=== PATIENT | female | born 1990 | race Caucasian/White ===

== ENCOUNTER 2025-06-11 10:23 | Inpatient (IN) ==
--- NOTE | 2025-06-11 11:15 | Ultrasound Report ---
ULTRASOUND OBSTETRICAL LIMITED CLINICAL HISTORY: Intrauterine demise at 23 weeks. COMPARISON STUDY: Obstetrical ultrasound dated 05/23/2025. FINDINGS: Real-time grayscale and color Doppler sonography of the fetus and gravid uterus is performe d. There is a single intrauterine gestation. The femoral length measures 3.62 cm, corresponding to an estimated age of 21 weeks 3 days. No cardiac activity was identified indicating demise. The ob stetrician was present during the examination. IMPRESSION: 1. There is a single intrauterine gestation with an estimated age of 21 weeks 3 days by femoral lengt h measurement. 2. No cardiac activity was identified confirming intrauterine demise. The air traffic control specialist was pres ent during the examination. Electronically signed by: Tyrell Lynch M.D. 06/11/2025 11:14 AM
--- NOTE | 2025-06-11 11:26 | History & Physical Report ---
Date of Service June 11, 2025 Assessment & Plan (1) IUFD at 20 weeks or more of gestation: Plan Support given given dx. Couple given time to grieve but then wanted to proceed with next steps. Ask about why this happened and given history as noted, can consider chromosomal issue can be further explored. Briefly brought up that as option. On u/s i did not see alot of fluid and in my hands would offer anorra testing as best option for more info on chromosomes. Also i do see her bp but taken with discovery of demise. Still montrell get labs, urine prot/creat ratio and see if bps cont to be elevated. Aware of placenta evaluation as well and will let them know about autopsy as option as well. Unexplained demise can be one third of this situations and that was also brought up. Option for induction of labor to result in delivery, would be only option to offer at [facility] at this time. She can stay or go home and think about things or give herself time but she pretty readily decided that was not for her and wants to be admitted to start process. She plans to have her mom drive from [place] to be with her. They have dogs but her partner plans to have his parents take care of them. They will be moved to another room and nursing will let me know when ready for cx exam and start misoprostol dosing. History of Present Illness Chief Complaint: no movement. Primary Care Provider: NO PCP 34yo at 23 0/7wks ega presents to LD with concern for no movement. Patient arrived at ER, did not call, noting no movement. Came to LD and nursing attempted to hear fhts and unable to find. Called to bedside and u/s performed where I could not see fhts or gross fm. Formal u/s also done confirming no fhts, IUFD. 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 Was seen by hilario and deann for early anatomy u/s and ultimately did not go through amnio due to discussions at these consults. Of note, also was at echo last , where findings were considered normal per pt. Here with partner. No bleeding, leaking. PNC c/b 1. IVF 2. 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, ri OBH: sab x 3 GYNH: infertility, was seen SGF, this was ivf Allergies Allergy/AdvReac Type Severity Reaction Status Date / Time No Known Allergies Allergy Unverified 05/23/25 09:32 Home Medications Medication Instructions Recorded Confirmed Type aspirin 81 mg tablet,delayed 81 mg PO DAILY 03/22/25 05/23/25 History release (Adult Low Dose Aspirin) prenat.vits,roxy,bjy-sgrr-zdalc tab PO 03/22/25 05/23/25 History Patient History Medical History Endometriosis Surgical History S/P laparoscopy Family History (Updated 03/22/25 @ 09:57 by Milena Morales) Other Diabetes Dyslipidemia Kidney disease Social History (Updated 03/22/25 @ 10:07 by Milena Morales) Smoking Status: Never smoker Do You Dip or Chew Tobacco: No; Hx Substance Use: No Preferred Language: Belarusian Hearing Ability: Normal marital status: marital status details: Abel (36) [phone] Current Living Situation: Spouse Current Living Situation Comment: lives with spouse and 2 dogs. 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 Feels Safe at Home: Yes Review of Systems as per Subjective / HPI Physical Exam Constitutional: WD/WN, vitals as above Neurologic: grossly normal Psychiatric: Orientation: alert and oriented x 3 (appropriately tearful) Genitourinary: cephalic on u/s Results & Data Vital Signs (Past 12 Hours) Vital Signs Temp Pulse Resp BP Pulse Ox 06/11/25 11:03 100 H 99 06/11/25 10:58 105 H 99 06/11/25 10:53 113 H 98 06/11/25 10:48 102 H 99 06/11/25 10:43 122 H 99 06/11/25 10:38 126 H 100 06/11/25 10:28 99.3 F 75 20 169/96 H Coding Level of Care Code None Diagnoses IUFD at 20 weeks or more of gestation O36.4XX0
[2025-06-11] MEDS ORDERED: LIDOCAINE 1% LOCAL 20 ML VIAL INFIL PRN (11:29)
[2025-06-11] MEDS ORDERED: CALCIUM CARBONATE 500 MG CHEWABLE TAB PO PRN (11:29)
[2025-06-11 12:11] LABS: Hematocrit (blood only) 35.9 % (37.0-47.0); Hemoglobin 12.4 g/dl (12.0-16.0); Mean Corpuscular Hemoglobin 31.2 pg (25.0-34.0); Mean Corpuscular Volume 90.2 fL (80.0-100.0); Platelet Count 301 K/uL (130-400); RDW Standard Deviation 42.3 fL (36.4-46.3); Red Blood Count 3.98 M/uL (4.20-5.40); White Blood Count 11.18 K/ul (4.8-10.8)
[2025-06-11 12:31] LABS: Alanine Aminotransferase 24 U/L (7-52); Albumin Globulin Ratio 1.0 (0.9-2); Albumin Level 3.3 gm/dl (3.4-5.0); Alkaline Phosphatase 109 U/L (34-104); Anion Gap 7 (3-11); Bilirubin,Total 0.3 mg/dl (0.2-1.0); Blood Urea Nitrogen 10 mg/dl (6-23); Calcium 9.1 mg/dl (8.6-10.3); Carbon Dioxide 24 mmol/L (21-32); Chloride 106 mmol/L (98-107); Globulin 3.4 gm/dl (2.5-4.0); Glucose 94 mg/dl (70-99(Fasting)); Potassium 4.0 mmol/L (3.5-5.1); Sodium 137 mmol/L (136-145); Total Protein 6.7 gm/dl (6.0-8.3)
--- NOTE | 2025-06-11 14:09 | Labor Progress Brief Note ---
Date of Service June 11, 2025 Subjective pt ready to proceed. her parents are on their way. Assessment & Plan (1) IUFD at 20 weeks or more of gestation: Plan will begin induction. discussed options for anorra testing again, did discuss autopsy as option and evaluation of placenta as something i have planend. discussed her bps, and labs so far. she will let us know about pain mgmt through the process. discussed delivery of baby and placenta and sometimes latter can be an issue but will address when time comes, just trying to prepare her for what to expect. she notes has a therapist and will be re-contacting them for care. 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 Admission and Anticipated Discharge Date Admission Date: June 11, 2025 Physical Exam Constitutional: WD/WN, vitals as above Respiratory: normal respiratory effort, lungs clear to auscultation Cardiovascular: Rate/Rhythm: regular rate and regular rhythm Gastrointestinal (Abdomen): soft gravid nt Musculoskeletal: no edema Genitourinary: Manual OB Exam: + cervical dilation fingertip, + cervical effacement (long) and + station -2 cytotec 200mcg placed in posterior fornix. Results & Data Vital Signs (Past 12 Hours) Vital Signs Temp Pulse Resp BP Pulse Ox 06/11/25 13:34 82 06/11/25 13:34 147/93 H 06/11/25 13:19 94 H 06/11/25 13:19 149/88 H 06/11/25 13:04 76 06/11/25 13:04 151/89 H 06/11/25 12:45 83 06/11/25 12:45 141/92 H 06/11/25 12:35 75 06/11/25 12:35 143/86 H 06/11/25 12:19 99.3 F 06/11/25 11:03 100 H 99 06/11/25 10:58 105 H 99 06/11/25 10:53 113 H 98 06/11/25 10:48 102 H 99 06/11/25 10:43 122 H 99 06/11/25 10:38 126 H 100 06/11/25 10:28 99.3 F 75 20 169/96 H Coding Level of Care Code None Diagnoses IUFD at 20 weeks or more of gestation O36.4XX0
[2025-06-11 14:14] LABS: Protein Creatinine Ratio Urine 0.3 (0-0.2); Total Protein Urine Random 26.9 mg/dl (0-11.9)
--- NOTE | 2025-06-11 18:55 | Labor Progress Brief Note ---
Date of Service June 11, 2025 Subjective pt felt crampy but feels fine, feels cold Assessment & Plan (1) IUFD at 20 weeks or more of gestation: (2) Preeclampsia: Plan cytotec placed. questions answered. discussed given her bps, and labs, do feel she has mild preeclampsia. did discuss will rec mfm preconception consult due to early ega, although may be related to reason for demise. she verbalized understanding. Admission and Anticipated Discharge Date Admission Date: June 11, 2025 Physical Exam 2 Constitutional: WD/WN, vitals as above Genitourinary: Manual OB Exam: + cervical dilation fingertip, + cervical effac ement 50% and + station (cytotec 200mcg placed in posterior fornix) -1 OB Exam Monitor Tracing: + external uterine monitor used (irrit) Results & Data Vital Signs (Past 12 Hours) Vital Signs Temp Pulse Resp BP Pulse Ox 06/11/25 18:27 90 06/11/25 18:27 157/92 H 06/11/25 18:07 22 06/11/25 18:07 99.0 F 22 06/11/25 17:57 90 06/11/25 17:57 154/92 H 06/11/25 17:27 87 06/11/25 17:27 154/94 H 06/11/25 16:57 81 06/11/25 16:57 160/90 H 06/11/25 16:28 83 06/11/25 16:28 155/91 H 06/11/25 15:57 76 06/11/25 15:57 163/93 H 06/11/25 15:35 100.0 F H 06/11/25 15:27 79 06/11/25 15:27 145/93 H 06/11/25 14:58 78 06/11/25 14:58 158/88 H 06/11/25 14:27 77 06/11/25 14:27 145/87 H 06/11/25 13:34 82 06/11/25 13:34 147/93 H 06/11/25 13:19 94 H 06/11/25 13:19 149/88 H 06/11/25 13:04 76 06/11/25 13:04 151/89 H 06/11/25 12:45 83 06/11/25 12:45 141/92 H 06/11/25 12:35 75 06/11/25 12:35 143/86 H 06/11/25 12:19 99.3 F 06/11/25 11:03 100 H 99 06/11/25 10:58 105 H 99 06/11/25 10:53 113 H 98 06/11/25 10:48 102 H 99 06/11/25 10:43 122 H 99 06/11/25 10:38 126 H 100 06/11/25 10:28 99.3 F 75 20 169/96 H Coding Level of Care Code None Diagnoses IUFD at 20 weeks or more of gestation O36.4XX0 Preeclampsia O14.90
[2025-06-11] MEDS: LACTATED RINGER'S 1,000 ML IV PRN (19:25)
[2025-06-11] MEDS: ACETAMINOPHEN 500 MG TAB PO ONE (19:37)
[2025-06-11] MEDS ORDERED: NALBUPHINE HCL INJ 10 MG/ML AMP IV PRN (19:58)
[2025-06-11] MEDS ORDERED: ROPIVACAINE 0.5% PF 5 MG/ML 20 ML VIAL EPI PRN (19:58)
[2025-06-11] MEDS ORDERED: BUPIVACAINE 0.25% PF 30 ML VIAL EPI PRN (19:58)
[2025-06-11] MEDS ORDERED: LIDOCAINE 2% MPF LOCAL 5 ML VIAL EPI PRN (19:58)
[2025-06-11] MEDS ORDERED: fentANYL 2 MCG/ML BUPIVacaine 0.125%-NSS 100ML BAG EPI PRN (19:58)
[2025-06-11] MEDS ORDERED: LIDOCAINE 2%/EPINEPHRINE 1:200,000 20 ML PF EPI STA (19:58)
[2025-06-11] MEDS ORDERED: BUPIVACAINE 0.25% PF 30 ML VIAL EPI STA (19:58)
[2025-06-11] MEDS ORDERED: SODIUM CHLORIDE 0.9% PF INJ 10 ML VIAL EPI STA (19:58)
[2025-06-11] MEDS ORDERED: NALOXONE HCL 1 MG in SODIUM CHLORIDE 0.9% 1,000 ML IV PRN (19:58)
[2025-06-11] MEDS ORDERED: diphenhydrAMINE 50 MG/ML VIAL IV PRN (19:58)
[2025-06-11] MEDS ORDERED: NALOXONE HCL 0.4 MG/1 ML VIAL/CARP IV PRN (19:58)
[2025-06-11] MEDS ORDERED: SODIUM CHLORIDE 0.9% PF INJ 10 ML VIAL EPI PRN (19:58)
--- NOTE | 2025-06-11 20:00 | Anesthesiology Consultation ---
Date of Service June 11, 2025 Assessment & Plan (1) Encounter for pre-operative examination: Chart Review Chart Review: Patient NOT seen in Pre Admission Testing and Acceptable Risk for Labor Epidural Consults Requested none History Height/Weight Height: 5 ft 4 in Weight: 52.219 kg Allergies Allergy/AdvReac Type Severity Reaction Status Date / Time No Known Allergies Allergy Unverified 05/23/25 09:32 Medications Home Medications Medication Instructions Recorded Confirmed Last Taken aspirin 81 mg tablet,delayed 81 mg PO DAILY 03/22/25 06/11/25 06/09/25 21:00 release (Adult Low Dose Aspirin) prenat.vits,roxy,ljo-ixlx-elpha tab PO 03/22/25 05/23/25 06/09/25 21:00 Active Medications Generic Name Dose Route Start Last Admin Trade Name Freq PRN Reason Stop Dose Admin Lactated Ringer's 1,000 mls @ 125 mls/hr 06/11/25 11:29 06/11/25 20:04 Lr IV 06/13/25 11:28 125 mls/hr .Q8H PRN Infusion L&D Protocol Protocol Past Medical History Medical History (Updated 06/11/25 @ 20:00 by Andrae Howard MD) Encounter for pre-operative examination Endometriosis Exercise / Class Metabolic Activity II 4-5 Yardwork/Stairs/Walk up hill Past Family History Family History Other Diabetes Dyslipidemia Kidney disease Past Surgical History Surgical History [place] teeth removed S/P laparoscopy Social History Smoking Status: Never smoker Do You Dip or Chew Tobacco: No Hx Alcohol Use: No Hx Substance Use: No Physical Exam Vital Signs Last Vital Signs Temp 37.2 C 06/11/25 18:07 Pulse 95 H 06/11/25 20:22 Resp 22 06/11/25 18:07 BP 155/80 H 06/11/25 20:22 Pulse Ox 97 06/11/25 20:19 Testing Laboratory Results 06/11/25 11:56 06/11/25 11:56
[2025-06-11] MEDS: fentANYL 2 MCG/ML BUPIVacaine 0.125%-NSS 100ML BAG ONE (20:24)
[2025-06-11] MEDS: BUPIVACAINE 0.25% PF 30 ML VIAL ONE (20:24)
[2025-06-11] MEDS: LIDOCAINE 2%/EPINEPHRINE 1:200,000 20 ML PF ONE (20:24)
[2025-06-11] MEDS: SODIUM CHLORIDE 0.9% PF INJ 10 ML VIAL ONE (20:24)
--- NOTE | 2025-06-11 22:25 | Labor Progress Brief Note ---
Date of Service June 11, 2025 Subjective now comfortable with epidural. Assessment & Plan (1) IUFD at 20 weeks or more of gestation: (2) Preeclampsia: Plan will cont with cytotec. toco as noted. effect on cx noted and reviewed with couple. plans anorra for now but let me know if she changes mind. partner not sure he will want to see or hold baby, they will cont to let us know their wants/needs. Admission and Anticipated Discharge Date Admission Date: June 11, 2025 Physical Exam Constitutional: WD/WN, vitals as above Genitourinary: Manual OB Exam: + cervical dilation 1 cm, + cervical effacement 100% and + station 0 OB Exam Monitor Tracing: + external uterine monitor used (irrit) Results & Data Vital Signs (Past 12 Hours) Vital Signs Temp Pulse Resp BP Pulse Ox 06/11/25 22:19 96 06/11/25 22:19 89 06/11/25 22:15 93 06/11/25 22:15 95 H 06/11/25 22:14 96 06/11/25 22:14 85 06/11/25 22:09 96 06/11/25 22:09 86 06/11/25 22:04 96 06/11/25 22:04 87 06/11/25 21:59 96 06/11/25 21:59 92 H 06/11/25 21:58 87 06/11/25 21:58 144/81 H 06/11/25 21:54 96 06/11/25 21:54 85 06/11/25 21:49 96 06/11/25 21:49 87 06/11/25 21:44 96 06/11/25 21:44 89 06/11/25 21:43 86 06/11/25 21:43 129/76 06/11/25 21:39 96 06/11/25 21:39 88 06/11/25 21:34 96 06/11/25 21:34 92 H 06/11/25 21:29 82 06/11/25 21:29 146/83 H 06/11/25 21:29 95 06/11/25 21:29 89 06/11/25 21:24 97 06/11/25 21:24 87 06/11/25 21:19 95 06/11/25 21:19 94 H 06/11/25 21:13 98 10/18/25 21:13 92 H 06/11/25 21:13 143/96 H 06/11/25 21:09 96 06/11/25 21:09 84 06/11/25 21:04 96 06/11/25 21:04 82 06/11/25 21:00 18 06/11/25 21:00 99.3 F 18 06/11/25 20:59 97 06/11/25 20:59 84 06/11/25 20:55 79 06/11/25 20:55 150/82 H 06/11/25 20:54 95 06/11/25 20:54 84 06/11/25 20:52 80 06/11/25 20:52 151/85 H 06/11/25 20:49 88 06/11/25 20:49 148/100 H 06/11/25 20:49 97 06/11/25 20:49 88 06/11/25 20:46 84 06/11/25 20:46 161/88 H 06/11/25 20:44 98 06/11/25 20:44 91 H 06/11/25 20:43 88 06/11/25 20:43 147/89 H 06/11/25 20:40 85 06/11/25 20:40 136/85 06/11/25 20:38 96 06/11/25 20:38 82 06/11/25 20:37 84 06/11/25 20:37 150/85 H 06/11/25 20:34 97 06/11/25 20:34 85 06/11/25 20:34 141/81 H 06/11/25 20:31 82 06/11/25 20:31 144/77 H 06/11/25 20:29 96 06/11/25 20:29 86 06/11/25 20:28 82 06/11/25 20:28 136/74 06/11/25 20:25 82 06/11/25 20:25 148/75 H 06/11/25 20:24 97 06/11/25 20:24 89 06/11/25 20:22 18 06/11/25 20:22 18 06/11/25 20:22 95 H 06/11/25 20:22 155/80 H 06/11/25 20:19 97 06/11/25 20:19 89 06/11/25 20:14 97 06/11/25 20:14 98 H 06/11/25 20:09 98 06/11/25 20:09 106 H 06/11/25 19:54 96 06/11/25 19:54 107 H 06/11/25 19:49 97 06/11/25 19:49 92 H 06/11/25 19:44 97 06/11/25 19:44 94 H 06/11/25 19:12 86 06/11/25 19:12 148/84 H 06/11/25 18:58 97 H 06/11/25 18:58 172/94 H 06/11/25 18:27 90 06/11/25 18:27 157/92 H 06/11/25 18:07 22 06/11/25 18:07 99.0 F 22 06/11/25 17:57 90 06/11/25 17:57 154/92 H 06/11/25 17:27 87 06/11/25 17:27 154/94 H 06/11/25 16:57 81 06/11/25 16:57 160/90 H 06/11/25 16:28 83 06/11/25 16:28 155/91 H 06/11/25 15:57 76 06/11/25 15:57 163/93 H 06/11/25 15:35 100.0 F H 06/11/25 15:27 79 06/11/25 15:27 145/93 H 06/11/25 14:58 78 06/11/25 14:58 158/88 H 06/11/25 14:27 77 06/11/25 14:27 145/87 H 06/11/25 13:34 82 06/11/25 13:34 147/93 H 06/11/25 13:19 94 H 06/11/25 13:19 149/88 H 06/11/25 13:04 76 06/11/25 13:04 151/89 H 06/11/25 12:45 83 06/11/25 12:45 141/92 H 06/11/25 12:35 75 06/11/25 12:35 143/86 H 06/11/25 12:19 99.3 F 06/11/25 11:03 100 H 99 06/11/25 10:58 105 H 99 06/11/25 10:53 113 H 98 06/11/25 10:48 102 H 99 06/11/25 10:43 122 H 99 06/11/25 10:38 126 H 100 06/11/25 10:28 99.3 F 75 20 169/96 H Coding Level of Care Code None Diagnoses IUFD at 20 weeks or more of gestation O36.4XX0 Preeclampsia O14.90
[2025-06-12] MEDS: ACETAMINOPHEN 325 MG TAB PO ONE (01:30)
[2025-06-12] MEDS: OXYTOCIN 30 UNITS/NSS 30 UNITS/500 ML BAG IV PRN (02:16)
[2025-06-12] MEDS: CARBOPROST TROMETHAMINE 250 MCG/ML AMPUL IM ONE (02:28)
[2025-06-12] MEDS: ONDANSETRON INJ 2 MG/ML 2 ML VIAL IV PRN (02:38)
[2025-06-12 03:00] VITALS: O2SAT 94
--- NOTE | 2025-06-12 03:16 | Delivery Summary ---
Vaginal Delivery Summary Date of Service June 12, 2025 Vaginal Delivery Summary Called to patient bedside as cephalic has delivered, srom about 10min before and pt felt pressure. Delivered demised fetus without pushing and moved to crib. Cord palpated and some placenta seemed to be protruding from os. Increased vaginal bleeding resulted in attempt for manual extraction of placenta as with fundal massage and traction of cord resulted in cord avulsion. The placenta was removed in pieces and banjo curettage performed at bedside with resultant additional placenta tissue in left fundal region. Uterus swept and no retained products suspected. Dilute iv pitocin was begun. Hemostasis was improving but still some bright red bleeding and when bp checked, im hemabate also given. Hemostasis was improving. Bladder was drained for about 100cc urine under sterile conditions. Fundus remained firm and bleeding decreased and within normal limits. Formal bedside u/s performed and no obvious retained tissue noted. Given that and improved bleeding and my clinical findings do suspect p lacenta has been removed completely but did explain to couple that there is always risk of retained tissue. Given sweeps of uterus, will given pp iv abx. She had some nausea and was given ivf and vs were watched. Cervix and sulci were intact. Patient stable in recovery. Given time with spouse in room and then patient plans to hold baby. [facility] Vaginal Delivery Charge Delivery Type Details: ARA
--- NOTE | 2025-06-12 04:02 | Anesthesia Procedure Note ---
Date of Service June 12, 2025 Anesthesia Post Epidural Note Vital Signs Vital Signs: Temp Pulse Resp BP Pulse Ox 38.2 C H 113 H 16 141/77 H 94 06/12/25 01:02 06/12/25 03:57 06/12/25 01:02 06/12/25 03:57 06/12/25 02:58 Notes Mental Status: alert / awake / arousable and participated in evaluation Patient Amnestic to Procedure: No Nausea / Vomiting: adequately controlled Pain: adequately controlled Airway Patency, RR, SpO2: stable & adequate BP & HR: stable & adequate Hydration State: stable & adequate Neuraxial Anesthesia: was administered and sensory block is resolving Anesthetic Complications: no major complications apparent and Pt Satisfied with anesthetic care Epidural: Removed without complications and With tip intact
--- NOTE | 2025-06-12 04:12 | Ultrasound Report ---
EXAM: US OB limited CLINICAL HISTORY: Check for retained parts after delivery. TECHNIQUE: Ultrasound examination of the pelvis was performed in real time and duplex, using transabdominal approach. Vascular flow was evaluated using color flow and with a spectral pattern of the flow waveform. COMPARISON: None. FINDINGS: Uterus: Uterine size and morphology: The uterus is anteverted and enlarged, measuring 12.3 x 7.6 x 7.8 cm. Prominent vascularity is seen in the myometrium. The endometrium is ill-defined on the visualized images; however, the visualized endometrium shows echogenic and cystic areas. Mild internal flow is seen. The endometrium is measured at 2.79 cm. There is no evidence of uterine masses or fibroids. Ovaries: Both ovaries were not visualized at the time of examination. Adnexa: Adnexal structures: Mild free fluid is seen in the right adnexa adjacent to the right ovary. Bladder: Urinary bladder: The urinary bladder is not distended during the examination. Additional Findings: Mild free fluid is seen in the cul-de-sac. IMPRESSION: 1. Ill-defined endometrium on visualized images; however, the visualized endometrium shows echogenic and cystic areas with internal flow, likely due to retained products of conception or blood clots. Clinical correlation is advised. 2. Prominent vascularity is seen in the uterine myometrium. 3. Mild free fluid is seen in the cul-de-sac and in the right adnexa. RECOMMENDATIONS: Clinical correlation with symptoms and further evaluation as indicated. Electronically signed by Frank Jarquin 06-12-2025 04:11 AM
[2025-06-12] MEDS ORDERED: HYDROCORTISONE ACETATE 25 MG SUPP PR PRN (05:21)
[2025-06-12] MEDS ORDERED: ACETAMINOPHEN 325 MG TAB PO PRN (05:21)
[2025-06-12] MEDS ORDERED: BENZOCAINE 20% SPRY 85 APPLN/85 GM CAN EXT PRN (05:21)
[2025-06-12] MEDS ORDERED: OXYTOCIN 30 UNITS/NSS 30 UNITS/500 ML BAG IV PRN (05:21)
[2025-06-12] MEDS ORDERED: OXYTOCIN 20 UNITS in LACTATED RINGER'S 1,000 ML IV SCH (05:21)
[2025-06-12] MEDS: DIPHTHER/TETAN/PERTUS Vaccine (Tdap, Adol/Adult) 0.5mL IM ONE (05:28)
[2025-06-12] MEDS: OXYTOCIN 20 UNITS/LR 1,002 ML IV SCH (06:02)
[2025-06-12 07:18] VITALS: BP 121/76; PULSE 82
[2025-06-12 07:22] VITALS: RESP 18; TEMP 97.9
[2025-06-12] MEDS: IBUPROFEN 600 MG TAB PO PRN (08:23)
[2025-06-12 09:54] LABS: Hematocrit (blood only) 27.0 % (37.0-47.0); Hemoglobin 9.1 g/dl (12.0-16.0)
--- NOTE | 2025-06-12 10:06 | Obstetrical Progress Note ---
Date of Service June 12, 2025 Assessment & Plan (1) Preeclampsia: (2) IUFD at 20 weeks or more of gestation: Plan ok for dc this am. risks associated with manual extraction of placenta and instrumented uterus reviewed, like infection, scarring. she plans to watch her temp curve and bleeding and let me know of any issues. support given for loss and plan 2wk check up in office. instructions reviewed. bps are now normal. no other sx. support given to couple for their loss. Admission and Anticipated Discharge Date Admission Date: June 11, 2025 Subjective pt doing ok this am. little sleep. she notes they decided to cremate the baby. baby Noel darjacquie. she would like to go home. uterus is tender to touch but no chills or fever. no ongoing bleeding issues. hgb this am 9.7 Review of Systems Constitutional: as per Subjective / HPI Physical Exam Constitutional: WD/WN, vitals as above Gastrointestinal (Abdomen): Percussion/Palpation: abdomen soft; abdomen nontender and no guarding ff at u and tender but appropriate. Neurologic: grossly normal Psychiatric: A+Ox3, euthymic affect Results & Data Vital Signs (Past 12 Hours) Vital Signs Temp Pulse Resp BP BP Pulse Ox O2 Del Method 06/12/25 07:21 97.9 F 18 121/76 Room Air 06/12/25 07:18 82 121/76 06/12/25 05:35 83 126/77 06/12/25 04:56 85 118/73 06/12/25 04:42 94 H 121/83 06/12/25 04:41 16 06/12/25 04:26 80 134/77 06/12/25 04:12 18 06/12/25 04:12 82 132/74 06/12/25 03:57 113 H 141/77 H 06/12/25 03:41 18 06/12/25 03:41 88 135/77 06/12/25 03:27 18 06/12/25 03:27 86 132/67 06/12/25 03:12 16 06/12/25 03:12 100 H 140/77 06/12/25 02:58 100 H 94 06/12/25 02:57 18 06/12/25 02:57 98 H 153/83 H 06/12/25 02:53 92 H 97 06/12/25 02:51 90 94 10/19/25 02:48 90 94 06/12/25 02:46 90 94 06/12/25 02:43 90 95 06/12/25 02:41 18 06/12/25 02:41 98 H 154/87 H 06/12/25 02:40 98 H 93 06/12/25 02:38 96 06/12/25 02:38 103 H 06/12/25 02:38 100 H 181/93 H 06/12/25 02:33 117 H 153/86 H 97 06/12/25 02:31 100 H 137/68 06/12/25 02:28 97 06/12/25 02:28 112 H 06/12/25 02:28 107 H 127/62 06/12/25 02:26 115 H 119/57 L 06/12/25 02:24 107 H 93 06/12/25 02:23 109 H 94 06/12/25 02:18 120 H 95 06/12/25 02:14 116 H 142/77 H 06/12/25 02:13 96 06/12/25 02:13 121 H 06/12/25 02:13 114 H 93 06/12/25 02:09 134 H 97 06/12/25 02:03 116 H 96 06/12/25 02:01 85 94 06/12/25 01:58 86 137/69 94 06/12/25 01:55 90 94 06/12/25 01:53 95 H 95 06/12/25 01:49 87 94 06/12/25 01:44 90 94 06/12/25 01:43 107 H 136/70 06/12/25 01:39 87 95 06/12/25 01:33 84 95 06/12/25 01:28 95 06/12/25 01:28 88 06/12/25 01:28 83 131/75 06/12/25 01:24 82 95 06/12/25 01:23 81 94 06/12/25 01:19 84 95 06/12/25 01:17 85 94 06/12/25 01:14 87 06/12/25 01:14 88 134/72 95 06/12/25 01:11 94 H 94 06/12/25 01:09 98 H 96 06/12/25 01:04 86 95 06/12/25 01:02 16 10/19/25 01:02 100.8 F H 16 06/12/25 01:01 89 94 06/12/25 00:59 100 H 95 06/12/25 00:58 85 149/81 H 06/12/25 00:54 94 06/12/25 00:54 101 H 06/12/25 00:54 97 H 95 06/12/25 00:49 94 06/12/25 00:49 86 06/12/25 00:49 87 94 06/12/25 00:43 89 142/78 H 94 06/12/25 00:40 91 H 94 06/12/25 00:39 94 H 96 06/12/25 00:34 86 94 06/12/25 00:32 84 94 06/12/25 00:29 98 H 96 06/12/25 00:28 85 142/79 H 06/12/25 00:27 83 94 06/12/25 00:24 84 94 06/12/25 00:21 84 94 06/12/25 00:19 85 94 06/12/25 00:15 86 94 06/12/25 00:14 83 06/12/25 00:14 86 150/85 H 96 06/12/25 00:09 97 H 96 06/12/25 00:04 84 94 06/11/25 23:59 95 06/11/25 23:59 85 06/11/25 23:58 18 06/11/25 23:58 18 06/11/25 23:58 84 06/11/25 23:58 146/83 H 06/11/25 23:56 94 06/11/25 23:56 85 06/11/25 23:54 94 06/11/25 23:54 85 06/11/25 23:50 94 06/11/25 23:50 89 06/11/25 23:49 97 06/11/25 23:49 90 06/11/25 23:44 95 06/11/25 23:44 97 H 06/11/25 23:43 83 06/11/25 23:43 145/82 H 06/11/25 23:39 96 06/11/25 23:39 87 06/11/25 23:34 95 06/11/25 23:34 88 06/11/25 23:31 93 06/11/25 23:31 93 H 06/11/25 23:29 96 06/11/25 23:29 87 06/11/25 23:28 81 06/11/25 23:28 150/83 H 06/11/25 23:24 96 06/11/25 23:24 87 06/11/25 23:22 94 06/11/25 23:22 88 06/11/25 23:19 95 06/11/25 23:19 92 H 06/11/25 23:14 16 06/11/25 23:14 16 06/11/25 23:14 96 06/11/25 23:14 82 06/11/25 23:14 139/77 06/11/25 23:09 94 06/11/25 23:09 93 H 06/11/25 23:04 95 06/11/25 23:04 92 H 06/11/25 22:59 95 06/11/25 22:59 88 06/11/25 22:58 93 H 06/11/25 22:58 139/78 06/11/25 22:54 96 06/11/25 22:54 86 06/11/25 22:49 96 06/11/25 22:49 88 06/11/25 22:44 95 06/11/25 22:44 86 06/11/25 22:43 85 06/11/25 22:43 140/74 06/11/25 22:39 95 06/11/25 22:39 93 H 06/11/25 22:34 96 06/11/25 22:34 90 06/11/25 22:29 96 06/11/25 22:29 85 06/11/25 22:28 86 06/11/25 22:28 138/83 06/11/25 22:24 96 06/11/25 22:24 89 06/11/25 22:19 96 06/11/25 22:19 89 06/11/25 22:15 93 06/11/25 22:15 95 H 06/11/25 22:14 96 06/11/25 22:14 85 06/11/25 22:09 96 06/11/25 22:09 86 06/11/25 22:04 96 06/11/25 22:04 87 PG Care Time/CCT Total # of Minutes Spent Total Time Spent with Patient: Total time spent is greater than 50% in coordination of care (as documented) at patient's floor/unit and/or counseling patient: Coding Level of Care Code None Diagnoses Preeclampsia O14.90 IUFD at 20 weeks or more of gestation O36.4XX0
[2025-06-12] MEDS: DOCUSATE SODIUM 100 MG CAP PO SCH (10:41)
[2025-06-12] MEDS: PRENATAL VITAMIN 1 TAB PO SCH (10:41)
--- NOTE | 2025-06-15 13:49 | Coding Query ---
PATHOLOGY To promote full compliance with coding requirements relating to patient care, physician participation is requested in all cases of electrotype servicer uncertainty. Please assist us with the question(s) below: Please review the Pathology report and please document any relevant diagnosis(es) below: Diagnosis(es): IUFD Thank you EAMON Mccall [facility]
--- NOTE | 2025-06-15 15:34 | Discharge Summary ---
Date of Service Date of admission: June 11, 2025 Date of discharge: June 12, 2025 Admission HPI Per Admitting Provider 34yo at 23 0/7wks ega presents to LD with concern for no movement. Patient arrived at ER, did not call, noting no movement. Came to LD and nu rsing attempted to hear fhts and unable to find. Called to bedside and u/s performed where I could not see fhts or gross fm. Formal u/s also done confirming no fhts, IUFD. 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 Was seen by genetics and mfm for early anatomy u/s and ultimately did not go through amnio due to discussions at these consults. Of note, also was at echo last , where findings were considered normal per pt. Here with partner. No bleeding, leaking. PNC c/b 1. IVF 2. 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 Received epidural anesthesia. Had srom and deliver of baby shortly thereafter. Placenta was retained and required manual extraction and use of banjo curette to remove portions of placenta. Bedside u/s suggested no retained placenta fragments. Bleeding under good control. [place] test specimen sent. Pt declined autopsy. Grief and mourning support given. Discharged home with plan for 2wk followup and instructions reviewed. At points in dx and l&d stay bps were elevated. Labs normal. Urine prot creat ratio 0.3. Possible dx of preeclam psia noted and pt can be offered MFM preconception consult due this at early gestation. Coding Level of Care Code None Diagnoses IUFD at 20 weeks or more of gestation O36.4XX0 resulting from in vitro fertilization, antepartum O09.819
== END 2025-06-12 10:33 | disposition home or self-care (01) | DRG 806 ==
LOC: OPB 10:23 → 4S1 10:26